=== PATIENT | male | born 1960 | race Caucasian/White ===

== ENCOUNTER 2019-02-25 14:23 | Emergency (ER) | payer OTHER, MEDICAID ==
[~2019-02-25] VITALS: Ht 165.1 cm; Wt 70.8 kg
--- NOTE | 2019-02-25 14:25 | NUR ---
Patient to ER bed 08 to gown for evaluation. Side rails up.
--- NOTE | 2019-02-25 14:26 | NUR ---
Note flashjesus in EDM - 02/25/19 at 1637 by [email or web address] Pt brought by ambulance, A&Ox3, pt presents to ER for medical clearance due to increase in agreesive bahavior, ambulatory, skin pink and warm, cap refill <3, VSS, denies pain, respirations even and unlabored, pt cooperative at this time.
--- NOTE | 2019-02-25 14:26 | NUR ---
Pt brought by ambulance, A&Ox1, pt presents to ER for medical clearance due to increase in agreesive bahavior, ambulatory, skin pink and warm, cap refill <3, VSS, denies pain, respirations even and unlabored, pt cooperative at this time.
[2019-02-25 14:31] VITALS: BP_SYST 122
--- NOTE | 2019-02-25 15:00 | NUR ---
Pt attempting to walk out from ER, pt reoriented to the room, charge nurse notified.
[2019-02-25 15:08] LABS: BARBITURATE, URINE NEGATIVE (NEG <=200); BENZODIAZEPINE, URINE POSITIVE (NEG <=150); CANNABINOID, URINE NEGATIVE (NEG <=50); COCAINE, URINE NEGATIVE (NEG <=150); METHAMPHETAMINES SCREEN,URINE NEGATIVE (NEG <=500); OPIATE, URINE NEGATIVE (NEG <=100); PHENCYCLIDINE SCREEN,URINE NEGATIVE (NEG <=25); UR TRICYCLIC ANTIDEPRESSANTS POSITIVE (NEG <=300); URINE AMPHETAMINE NEGATIVE (NEG <=500); URINE METHADONE NEGATIVE (NEG <=200); URINE OXYCODONE SCREEN NEGATIVE (NEG <=100); URINE PROPOXYPHENE SCREEN NEGATIVE (NEG <=300)
--- NOTE | 2019-02-25 15:09 | NUR ---
Report given to Dorie GUILLEN
[2019-02-25 15:11] LABS: BASOPHILS # (AUTO) 0.1 K/uL (0.0-0.2); BASOPHILS % (AUTO) 1.2 % (0.0-2.0); EOSINOPHILS # (AUTO) 0.2 K/uL (0.0-0.4); EOSINOPHILS % (AUTO) 1.8 % (0.0-4.0); HEMATOCRIT 42.7 % (36-54); HEMOGLOBIN 14.4 g/dL (14.0-18.0); LYMPHOCYTES % (AUTO) 22.6 % (20.5-51.5); MEAN CORPUSCULAR HEMOGLOBIN 31 pg (27-31); MEAN CORPUSCULAR HGB CONC 34 % (32-36); MEAN CORPUSCULAR VOLUME 91 fL (79.0-98.0); MONOCYTES # (AUTO) 0.7 K/uL (0.0-1.0); MONOCYTES % (AUTO) 8.2 % (1.7-9.3); NEUTROPHILS # (AUTO) 5.8 K/uL (1.8-7.7); NEUTROPHILS % (AUTO) 66.2 % (40.0-70.0); PLATELET COUNT (AUTO) 244 K/uL (130-430); RED BLOOD CELL COUNT(AUTO) 4.71 MIL/uL (4.2-6.2); RED CELL DISTRIBUTION WIDTH 13.1 % (9.0-15.0); WHITE BLOOD COUNT (AUTO) 8.7 K/uL (4.8-10.8)
[2019-02-25 15:21] LABS: C-REACTIVE PROTEIN QUANT < 0.2 mg/dL (0-0.5)
[2019-02-25] MEDS ORDERED: IBUPROFEN 800 MG TABLET PO ONE (15:30)
[2019-02-25 15:36] LABS: ANION GAP 7 (5-15); CHLORIDE 106 mmol/L (98-107); GLUCOSE 101 mg/dL (70-99); POTASSIUM 3.8 mmol/L (3.5-5.1); SODIUM SERUM 142 mmol/L (136-145)
[2019-02-25 15:37] LABS: ALANINE AMINOTRANSFERASE 56 U/L (12-78); ALBUMIN 4.2 g/dL (3.4-4.8); ASPARTATE AMINOTRANSFERASE 43 U/L (10-37); CALCIUM 9.7 mg/dL (8.4-11.0); CREATININE 0.93 mg/dL (0.55-1.30); GFR AFRICAN AMERICAN 108 mL/min (>90); TOTAL BILIRUBIN 0.4 mg/dL (0.0-1.0); UREA NITROGEN, BLOOD 15 mg/dL (8-21)
[2019-02-25 15:38] LABS: ACETAMINOPHEN < 1 ug/mL (1-30); ALCOHOL, BLOOD < 3 mg/dL (<10)
--- NOTE | 2019-02-25 16:10 | NUR ---
[facility] EMT at bedside sitting patient
--- NOTE | 2019-02-25 16:21 | NUR ---
Pt resting at this time, VSS, respirations even and unlabored.
--- NOTE | 2019-02-25 17:10 | NUR ---
Spoke with Katerine at [facility] to give report about pt status, pt on stable condition at this time,ambulatory.
--- NOTE | 2019-02-25 17:30 | NUR ---
Food tray ordered for patient
--- NOTE | 2019-02-25 17:50 | NUR ---
MRSA collected and sent to lab
[2019-02-25 18:17] VITALS: BP_SYST 137
--- NOTE | 2019-02-25 18:17 | NUR ---
Patient to be transferred to [facility]. Is being transferred due to higher level of care. Receiving facility has accepting physician and available space. ER physician has signed transfer form. Patient or responsible libertarian has agreed to transfer and signed form. Patient belongings inventoried and will be sent with patient. Copy of nursing notes, lab reports, EKG, Physicians Orders and X-rays to be sent with patient. Report called to at receiving facility. Receiving physician is . ambulance service has been called for transfer.
[2019-02-26 08:14] LABS: CHOLESTEROL 198 mg/dL (<200); HDL CHOLESTEROL 61 mg/dL (>45); LDL CHOLESTEROL 115 mg/dL (<100); TRIGLYCERIDES 72 mg/dL (30-150)
== END 2019-02-25 18:17 ==
LOC: SED 14:23 → EDSEX 14:23 → SED 18:17
DX: R51 Headache (principal); R45.6 Violent behavior; F20.9 Schizophrenia, unspecified; F03.90 Unspecified dementia, unspecified severity, without behavioral disturbance, psychotic disturbance, mood disturbance, and anxiety; Z88.8 Allergy status to other drugs, medicaments and biological substances
CPT/HCPCS: 36415; 70450; 80053; 80061; 80307; 83036; 85025; 86140; 87081; 99285; G0480; G0481; G0482